=== PATIENT | female | born 1980 | race Caucasian/White ===

== ENCOUNTER → 2018-08-27 | Outpatient (REF) | payer OTHER ==
[2018-08-27 12:46] LABS: CHLAMYDIA DNA AMPLIFICATION NEGATIVE (NEGATIVE); GC DNA AMPLIFICATION NEGATIVE (NEGATIVE)
== END ==
LOC: M SFHCLERA 09:36
DX: R30.0 Dysuria (principal)

== ENCOUNTER → 2020-02-11 | Outpatient (REF) | payer OTHER | LOC: M LAB REF 12:04 | PROVIDERS: ATTEND Physician Assistant | DX: J02.9 Acute pharyngitis, unspecified (principal) ==

== ENCOUNTER 2020-02-15 14:22 | Emergency (ER) | payer OTHER ==
[~2020-02-15] VITALS: Ht 160 cm; Wt 79.6 kg
[2020-02-15] MEDS ORDERED: AMOX875T PO (14:31)
[2020-02-15] MEDS ORDERED: ZOFR4TAB16 PO (14:31)
[2020-02-15] MEDS ORDERED: PRED20TA PO (14:31)
[2020-02-15] MEDS ORDERED: PANTOPRAZOLE 40MG VIAL (C9113 PER 1) IV ONE (14:45)
[2020-02-15] MEDS ORDERED: GI COCKTAIL 50ML BTL(HYOSCYAMINE/MAALOX/LIDOCAINE VISCOUS)(1:3:1) PO ONE (14:45)
[2020-02-15 15:01] LABS: BASO % 0.2 % (0.0-1.0); EOS % 0.2 % (0.0-3.0); HEMATOCRIT 31.8 % (36.0-47.0); HEMOGLOBIN 9.4 g/dl (12.0-15.5); LYMPH # 1.8 10^3/uL (1.5-5.0); LYMPH % 22.5 % (24.0-44.0); MEAN CORPUSCULAR HEMOGLOBIN 21.6 pg (27.0-33.0); MEAN CORPUSCULAR HGB CONC 29.6 g/dl (32.0-36.5); MEAN CORPUSCULAR VOLUME 72.9 fl (80.0-96.0); MONO # 0.7 10^3/uL (0.0-0.8); MONO % 8.8 % (0.0-5.0); NEUTROPHILS # 5.5 10^3/uL (1.5-8.5); NEUTROPHILS % 67.8 % (36.0-66.0); PLATELET COUNT, AUTOMATED 255 10^3/uL (150-450); RED BLOOD COUNT 4.36 10^6/uL (4.00-5.40); WHITE BLOOD COUNT 8.1 10^3/uL (4.0-10.0)
[2020-02-15 15:13] LABS: INR 1.1; PROTHROMBIN TIME 13.9 SECONDS (11.8-14.0)
[2020-02-15 15:14] LABS: PARTIAL THROMBOPLASTIN TIME 30.1 SECONDS (25.0-38.4)
[2020-02-15 15:25] LABS: HCG, SERUM QUALITATIVE NEGATIVE (NEGATIVE)
[2020-02-15 15:33] LABS: ALBUMIN 3.9 GM/DL (3.2-5.2); ALT/SGPT 12 U/L (12-78); BILIRUBIN,DIRECT 0.1 MG/DL (0.0-0.2); BILIRUBIN,TOTAL 0.4 MG/DL (0.2-1.0); BLOOD UREA NITROGEN 13 MG/DL (7-18); CALCIUM LEVEL 8.4 MG/DL (8.5-10.1); CARBON DIOXIDE LEVEL 23 MEQ/L (21-32); CHLORIDE LEVEL 104 MEQ/L (98-107); CK-MB VALUE MASS < 1.0 NG/ML (<3.6); CPK CREATINE PHOSPHOKINASE 53 U/L (26-192); CREATININE FOR GFR 0.63 MG/DL (0.55-1.30); FREE T4 1.39 NG/DL (0.76-1.46); GLOMERULAR FILTRATION RATE > 60.0 (>60); GLUCOSE, FASTING 89 MG/DL (70-100); LIPASE 72 U/L (73-393); MB/CK RELATIVE INDEX 1.89 (< OR =4); POTASSIUM SERUM 3.4 MEQ/L (3.5-5.1); SODIUM LEVEL 137 MEQ/L (136-145); TOTAL PROTEIN 7.7 GM/DL (6.4-8.2); TROPONIN I < 0.02 NG/ML (< 0.10)
[2020-02-15] MEDS ORDERED: ISOVUE-370 76% 100ML VIAL (Q9967) As Ordered ONE (15:40)
[2020-02-15] MEDS ORDERED: POTASSIUM CHLORIDE 10 MEQ SR TABLET PO ONE (16:00)
[2020-02-15] MEDS ORDERED: PROT1TAB2 PO (16:42)
[2020-02-15 16:50] VITALS: BP 123/85
--- NOTE | 2020-02-15 16:51 | ECGEPIP ---
[facility] - ED Test Date: 2020-02-15 Pat Name: ANI HENLEY Department: Room: - Gender: Female Building Consultant: KATHE : 1980 Requested By: LES Johnson Order Number: [id number] Reading MD: Iva Torres Measurements Intervals [place] Rate: 94 P: 58 [place]: 150 QRS: 24 QRSD: 86 T: 22 QT: 372 QTc: 467 Interpretive Statements SINUS RHYTHM NONSPECIFIC ST T WAVE CHANGES PROLONGED QTC NO PRIOR ECG FOR COMPARISON Electronically Signed on 02-15-2020 16:51:00 EDT by Iva Torres
--- NOTE | 2020-02-16 07:35 | REP ---
CT pulmonary angiogram: With IV contrast. History: Pleuritic chest pain. Comparison studies: No comparison study. Contrast dose: 100 mL of Isovue [address] technique: Helical scanning is acquired and overlapping 1.5 mm and contiguous 3 mm axial images are reformatted. In addition, maximum intensity projection and multiplanar re-formation images are generated in sagittal and coronal imaging projections. CT pulmonary angiographic findings: There is good opacification of the pulmonary arterial tree. There is no filling defect or vessel cutoff. There is no CT evidence to suggest pulmonary embolism. Thoracic aorta is homogeneous in enhancement and normal in caliber. No evidence of dissection or aneurysm. The lung garcia are free of infiltrate. There is no evidence of atelectasis, pulmonary mass, or significant pulmonary nodule. No bony destructive lesion is seen. No pleural or pericardial effusion is seen. There is no evidence of hilar or mediastinal mass or adenopathy. Impression: Negative CT pulmonary angiogram. No CT evidence of pulmonary embolus. No acute intrathoracic abnormality. Electronically Signed by Kleber Morales MD 02/16/2020 07:41 A
--- NOTE | 2020-02-16 07:38 | REP ---
CT abdomen and pelvis with IV but without oral contrast: History: Epigastric and right lower quadrant pain. CT contrast dose: 100 mL of intravenous Isovue 370. CT findings: Preliminary digital merchandise planning manager radiograph shows a normal bowel gas pattern. The liver and the spleen are normal in size and homogeneous in texture. No adrenal lesion is seen. There is no abnormality in the gallbladder or pancreas. No retroperitoneal mass or adenopathy is seen. Kidneys enhance symmetrically are morphologically intact. There is no evidence of hydronephrosis or urinary tract calculus. A normal appendix is seen in the right lower quadrant. No inflammatory changes are noted. There is no evidence of free air or free fluid in the abdomen. No uterine or ovarian abnormality is seen. Bone window settings show no bony destructive lesion. Small and large bowel loops are unremarkable. No uterine or ovarian abnormalities. Impression: No acute abdominal or pelvic abnormality. Normal appendix is seen. Electronically Signed by Kleber Morales MD 02/16/2020 07:42 A
== END 2020-02-15 16:52 | disposition home or self-care (01) ==
LOC: M ED 14:22
DX: R07.9 Chest pain, unspecified (principal); R11.2 Nausea with vomiting, unspecified; R05 Cough; J02.0 Streptococcal pharyngitis; Z88.8 Allergy status to other drugs, medicaments and biological substances; Z79.899 Other long term (current) drug therapy; Z79.52 Long term (current) use of systemic steroids; Z79.2 Long term (current) use of antibiotics
CPT/HCPCS: 71275; 74177; 80048; 80076; 82550; 82553; 83690; 84439; 84443; 84484; 84703; 85025; 85610; 85730; 93005; 93041; 94760; 96374; 99285; C9113; Q9967

== ENCOUNTER → 2020-08-28 | Outpatient (REF) | payer OTHER ==
[~2020-08-28] MED LIST: AMOX875T PO; PRED20TA PO; PROT1TAB2 PO; ZOFR4TAB16 PO
[2020-08-28 17:30] LABS: APPEARANCE, URINE HAZY (CLEAR); BACTERIA, URINE AUTO 1+ (NEGATIVE); BILIRUBIN, URINE AUTO NEGATIVE (NEGATIVE); BLOOD, URINE BLOOD 2+ (NEGATIVE); COLOR, URINE YELLOW (YELLOW); GLUCOSE, URINE (UA) AUTO NEGATIVE (NEGATIVE); KETONE, URINE AUTO NEGATIVE (NEGATIVE); LEUKOCYTE ESTERASE, URINE AUTO NEGATIVE (NEGATIVE); MUCUS, URINE SMALL (NEGATIVE); NITRITE, URINE AUTO NEGATIVE (NEGATIVE); PROTEIN, URINE AUTO NEGATIVE (NEGATIVE); RBC, URINE AUTO 0 /HPF (0-3); SPECIFIC GRAVITY URINE AUTO 1.019 (1.002-1.035); SQUAMOUS EPITHELIAL CELL UR AU 7 /HPF (0-6); UROBILINOGEN, URINE AUTO 0.2 mg/dL (0.0-2.0); WBC, URINE AUTO 1 /HPF (0-3)
== END ==
LOC: M LAB REF 16:25
PROVIDERS: ATTEND Physician Assistant
DX: N39.0 Urinary tract infection, site not specified (principal); R30.0 Dysuria

== ENCOUNTER → 2020-11-20 | Outpatient (REF) | payer OTHER ==
[2020-11-20 12:57] LABS: HEMATOCRIT 32.7 % (36.0-47.0); HEMOGLOBIN 9.9 g/dl (12.0-15.5); MEAN CORPUSCULAR HEMOGLOBIN 23.2 pg (27.0-33.0); MEAN CORPUSCULAR HGB CONC 30.3 g/dl (32.0-36.5); MEAN CORPUSCULAR VOLUME 76.8 fl (80.0-96.0); PLATELET COUNT, AUTOMATED 256 10^3/uL (150-450); RED BLOOD COUNT 4.26 10^6/uL (4.00-5.40); WHITE BLOOD COUNT 6.2 10^3/uL (4.0-10.0)
[2020-11-20 14:11] LABS: HEPATITIS C VIRUS ABY INDEX < 0.0 INDEX (<0.8); HIV 1&2 SCREEN CENTAUR NEGATIVE (NEGATIVE)
[2020-11-20 14:45] LABS: CHLAMYDIA DNA AMPLIFICATION NEGATIVE (NEGATIVE); GC DNA AMPLIFICATION NEGATIVE (NEGATIVE)
== END ==
LOC: M PLALAB 10:22
PROVIDERS: ATTEND Specialist
DX: Z34.81 Encounter for supervision of other normal pregnancy, first trimester (principal)

== ENCOUNTER → 2020-12-18 | Outpatient (REF) | payer OTHER ==
[2020-12-18 14:36] LABS: PERCENT SATURATION 7.5 % (13.2-45.0)
== END ==
LOC: M PLALAB 11:37
PROVIDERS: ATTEND Advanced Practice Midwife
DX: O09.521 Supervision of elderly multigravida, first trimester (principal); O99.011 Anemia complicating pregnancy, first trimester

== ENCOUNTER 2020-12-24 08:12 | Outpatient (CLI) | payer OTHER ==
[~2020-12-24] VITALS: Ht 160 cm; Wt 83.4 kg
[2020-12-24] VITALS (7 sets, daily range): BP systolic 105–148; BP diastolic 56–82
[2020-12-24] MEDS ORDERED: IRON SUCROSE 500 MG in NS 250 ML OVER 4 HRS IV ONE (08:30)
[2020-12-24] MEDS ORDERED: CVS50CAP PO (09:01)
[2020-12-24] MEDS ORDERED: FIOR1CAP PO (09:01)
[2020-12-24] MEDS ORDERED: FERR32TA PO (09:01)
== END 2020-12-24 13:45 | disposition home or self-care (01) ==
LOC: M INFU 08:12
PROVIDERS: ATTEND Advanced Practice Midwife
DX: D64.9 Anemia, unspecified (principal); Z88.8 Allergy status to other drugs, medicaments and biological substances
CPT/HCPCS: 96365; 96366; J1756

== ENCOUNTER → 2021-01-29 | Outpatient (CLI) | payer OTHER ==
[~2021-01-29] MED LIST changes: +CVS50CAP PO; +FERR32TA PO; +FIOR1CAP PO
--- NOTE | 2021-01-29 14:28 | REP ---
INDICATION: ANATOMY. COMPARISON: None TECHNIQUE: Transabdominal scanning for 2nd trimester anatomy screen. FINDINGS: Scanning demonstrates a viable single intrauterine gestation in a variable lie. motion is observed and heart rate is recorded at 150 beats per minute. A posterior, grade I placenta is seen without evidence of previa. Umbilical cord with mid placental insertion. Amniotic fluid is subjectively normal. Closed cervical length is measured at 4.1 cm transabdominally. No extrauterine abnormality is observed. The cranium the appears to have a dolichocephalic shape. The right choroid plexus has 2 cystic areas visible, less than 5 mm each. The four-chamber heart view shows an echogenic focus in the left ventricle of the heart. The following anatomic structures are identified and felt to be sonographically unremarkable: Cavum, cerebellum and posterior fossa, cisterna magna, face and profile, nose and lips, nuchal fold, lungs, left and right ventricular outflow tract views, diaphragm, left-sided stomach, abdominal wall cord insertion, three-vessel umbilical cord, abdominal wall, kidneys and bladder, spine, and upper and lower extremities. Biometry chart: BPD 3.9 cm; 17 weeks 6 days Head circumference 16.0 cm; 18 weeks 6 days Abdominal circumference 13.2 cm; 18 weeks 5 days Femur length 3.1 cm; 19 weeks 5 days Humeral length 0.9 cm; 19 weeks 3 days HC/AC ratio normal 1.21 Cephalic index 0.65 (normal 0.7-0.86) Estimated weight 273 grams, 0 pounds 9 ounces, 68th percentile for 18 weeks 5 days. IMPRESSION: Single intrauterine gestation at 18 weeks 6 days by composite ultrasound criteria today. This gives EDC 06/26/2021 by today's study. By known EDC of 06/27/2021 she is 18 weeks 5 days Variable position, posterior grade 1 placenta without previa and mid cord insertion noted. Heart rate 150. Visually normal amniotic fluid volume. Closed 4.1 cm long cervix. Size and dates correspond well today with reported known CHRISTIE Anatomy screen shows a dolichocephalic skull, an intracardiac echogenic focus in the left ventricle and 2 less than 5 mm cysts in the right choroid plexus. These may be rechecked, all other anatomic features are seen and unremarkable. <Electronically signed by Jay Shah > 01/29/21 [id number]
== END ==
LOC: M WHC 10:55
PROVIDERS: ATTEND Obstetrics & Gynecology
DX: O34.211 Maternal care for low transverse scar from previous cesarean delivery (principal); O09.522 Supervision of elderly multigravida, second trimester; Z3A.18 18 weeks gestation of pregnancy

== ENCOUNTER → 2021-02-12 | Outpatient (REF) | payer OTHER ==
[2021-02-12 13:10] LABS: BASO % 0.4 % (0.0-1.0); EOS # 0.1 10^3/uL (0.0-0.5); EOS % 1.2 % (0.0-3.0); HEMATOCRIT 35.4 % (36.0-47.0); HEMOGLOBIN 11.3 g/dl (12.0-15.5); LYMPH # 1.2 10^3/uL (1.5-5.0); LYMPH % 17.2 % (24.0-44.0); MEAN CORPUSCULAR HEMOGLOBIN 27.7 pg (27.0-33.0); MEAN CORPUSCULAR HGB CONC 31.9 g/dl (32.0-36.5); MEAN CORPUSCULAR VOLUME 86.8 fl (80.0-96.0); MONO # 0.4 10^3/uL (0.0-0.8); MONO % 5.9 % (2.0-8.0); NEUTROPHILS # 5.2 10^3/uL (1.5-8.5); NEUTROPHILS % 74.9 % (36.0-66.0); PLATELET COUNT, AUTOMATED 232 10^3/uL (150-450); RED BLOOD COUNT 4.08 10^6/uL (4.00-5.40); WHITE BLOOD COUNT 6.9 10^3/uL (4.0-10.0)
== END ==
LOC: M PLALAB 11:48
PROVIDERS: ATTEND Advanced Practice Midwife
DX: O99.012 Anemia complicating pregnancy, second trimester (principal); Z3A.00 Weeks of gestation of pregnancy not specified

== ENCOUNTER → 2021-03-12 | Outpatient (REF) | payer OTHER | LOC: M PLALAB 12:39 | PROVIDERS: ATTEND Advanced Practice Midwife | DX: O99.019 Anemia complicating pregnancy, unspecified trimester (principal) ==

== ENCOUNTER → 2021-03-26 | Outpatient (REF) | payer OTHER ==
[2021-03-26 17:40] LABS: HEMATOCRIT 31.3 % (36.0-47.0); HEMOGLOBIN 10.2 g/dl (12.0-15.5); MEAN CORPUSCULAR HEMOGLOBIN 28.5 pg (27.0-33.0); MEAN CORPUSCULAR HGB CONC 32.6 g/dl (32.0-36.5); MEAN CORPUSCULAR VOLUME 87.4 fl (80.0-96.0); PLATELET COUNT, AUTOMATED 229 10^3/uL (150-450); RED BLOOD COUNT 3.58 10^6/uL (4.00-5.40); WHITE BLOOD COUNT 6.1 10^3/uL (4.0-10.0)
== END ==
LOC: M PLALAB 14:35
PROVIDERS: ATTEND Advanced Practice Midwife
DX: O09.529 Supervision of elderly multigravida, unspecified trimester (principal); O99.019 Anemia complicating pregnancy, unspecified trimester; Z3A.00 Weeks of gestation of pregnancy not specified

== ENCOUNTER → 2021-04-06 | Outpatient (CLI) | payer OTHER | LOC: M LAB 07:05 | PROVIDERS: ATTEND Advanced Practice Midwife | DX: O99.810 Abnormal glucose complicating pregnancy (principal) ==

== ENCOUNTER → 2021-05-17 | Outpatient (CLI) | payer OTHER | LOC: M WHC 13:38 | PROVIDERS: ATTEND Obstetrics & Gynecology | DX: O09.523 Supervision of elderly multigravida, third trimester (principal) ==

== ENCOUNTER → 2021-06-01 | Outpatient (REF) | payer OTHER, MEDICAID ==
[~2021-06-01] MED LIST changes: +COLA100C5 PO; +PERCOCET PO; +PRENTAB9 PO
== END ==
LOC: M SFHCWAGY 16:49
PROVIDERS: ATTEND Specialist
DX: Z34.83 Encounter for supervision of other normal pregnancy, third trimester (principal)

== ENCOUNTER → 2021-06-01 | Outpatient (CLI) | payer OTHER, MEDICAID | LOC: M WHC 11:58 | PROVIDERS: ATTEND Obstetrics & Gynecology | DX: Z36.4 Encounter for antenatal screening for fetal growth retardation (principal); O09.523 Supervision of elderly multigravida, third trimester; Z3A.36 36 weeks gestation of pregnancy ==

== ENCOUNTER → 2021-06-16 | Outpatient (CLI) | payer OTHER ==
[~2021-06-16] MED LIST changes: -COLA100C5 PO; -PERCOCET PO; -PRENTAB9 PO
== END ==
LOC: M LABSMTC 09:38
PROVIDERS: ATTEND Anesthesiology
DX: Z01.818 Encounter for other preprocedural examination (principal); Z11.52 Encounter for screening for COVID-19

== ENCOUNTER 2021-06-19 15:35 | Inpatient (IN) | payer OTHER, MEDICAID ==
[~2021-06-19] VITALS: Ht 157.5 cm; Wt 82.6 kg
[2021-06-19] MEDS ORDERED: COLA100C5 PO ×2 (15:57→20:29)
[2021-06-19] MEDS ORDERED: PRENTAB9 PO (15:57)
[2021-06-19] MEDS ORDERED: HOME MED LIST COMPLETE! XX SCH (16:00)
[2021-06-19 16:04] VITALS: BP 126/78
[2021-06-19 16:40] VITALS: BP 122/67
[2021-06-19] MEDS ORDERED: AZITHROMYCIN INJ 500 MG, VIAL MATE ADAPTER 1 EACH in NS 250 ML IV ONE (17:45)
[2021-06-19] MEDS ORDERED: TRANEXAMIC ACID INJection 1,000 MG in NS 100 ML IV PRN (17:45)
[2021-06-19] MEDS ORDERED: LACTATED RINGER'S 1000 ML IV STA (17:45)
[2021-06-19] MEDS ORDERED: BICITRA 30ML SOLN UDC PO ONE (17:45)
[2021-06-19] MEDS ORDERED: CARBOPROST TROMETHAMINE 250 MCG/ML AMP IM PRN (17:45)
[2021-06-19] MEDS ORDERED: METHYLERGONOVINE MALEATE 0.2 MG/ML VIAL (J2210) IM PRN (17:45)
[2021-06-19] MEDS ORDERED: LR 1,000 ML IV SCH ×3 (17:45→20:15)
[2021-06-19] MEDS ORDERED: ceFAZolin SOD 2 GM in IV 1 EA IV ONE (17:45)
[2021-06-19 17:57] LABS: HEMATOCRIT 33.5 % (36.0-47.0); HEMOGLOBIN 11.3 g/dl (12.0-15.5); MEAN CORPUSCULAR HEMOGLOBIN 29.5 pg (27.0-33.0); MEAN CORPUSCULAR HGB CONC 33.7 g/dl (32.0-36.5); MEAN CORPUSCULAR VOLUME 87.5 fl (80.0-96.0); PLATELET COUNT, AUTOMATED 195 10^3/uL (150-450); RED BLOOD COUNT 3.83 10^6/uL (4.00-5.40); WHITE BLOOD COUNT 9.9 10^3/uL (4.0-10.0)
[2021-06-19] MEDS ORDERED: MORPHINE PRES-FREE INJ 10 MG/10 ML VIAL (J2274) As Ordered ONE (17:59)
[2021-06-19] MEDS ORDERED: OXYTOCIN 30 UNITS IN 0.9% NaCl 500ML IV BAG (J2590) As Ordered ONE ×2 (17:59→20:52)
[2021-06-19] MEDS ORDERED: METOCLOPRAMIDE INJ 10MG/2ML VIAL (J2765 PER 1) IV PRN ×2 (18:21→20:15)
[2021-06-19] MEDS ORDERED: NALOXONE INJ 0.4MG/1ML VIAL (J2310 PER 1MG) IV PRN ×2 (18:21)
[2021-06-19] MEDS ORDERED: ONDANSETRON 4MG/2ML VIAL IV PRN ×2 (18:21→20:15)
[2021-06-19] MEDS ORDERED: diphenhydrAMINE 50MG/ML VIAL (J1200) IV PRN (18:21)
[2021-06-19] MEDS ORDERED: NALBUPHINE HCL 10 MG/ML AMP (J2300) IV PRN (18:21)
[2021-06-19] MEDS ORDERED: ONDANSETRON 4MG/2ML VIAL As Ordered ONE (18:29)
--- NOTE | 2021-06-19 18:30 | HPEPDOC ---
Obstetrical History & Physical General Date of Admission Jun 19, 2021 at 17:30 History of Present Illness 40-year-old at 38+6 weeks gestation. Presents with frequent, painful ut erine contractions over the past several hours. Also complains of decreased movement. Denies any loss of fluid or vaginal bleeding. ROS: no CUELLO, cp, sob, fever/chills/nausea/vomiting. course: History of LTCS x 3; satisfied parity. Plan is for RLTCS/BTL. PMH: Migraines SH: LTCS x 3 Meds: vitamin All: Ibuprofen, Ephedrine CONTRACTS ADVISOR: No STI or dysplasia OB: Term LTCS x 3 Sochx: No tobacco, alcohol or drug use FamHx: HTN, HLD labs: Blood type A+ , antibody screen negative, HepBsAg neg, HIV neg, rubella immune, Hep C antibody negative, RPR nonreactive, CT/GC neg, urine culture negative, 1 hour glucose challenge test, GBS negative imaging: no anomalies or placental abnormalities Past Medical History Allergies Coded Allergies: ephedrine (Verified Allergy, Unknown, 02/15/20) ibuprofen (Verified Allergy, Unknown, HIVES AND SWELLING, 06/19/21) Medications Scheduled Docusate Sodium (Colace) 100 Mg Capsule, 100 MG PO DAILY Ferrous Gluconate (Ferrous Gluconate) 324 Mg Tablet, 1 TAB PO TID No.137/Iron/Folic Acd ( Vitamin Tablet) 1 Each Tablet, 1 TAB PO DAILY Physical Examination Physical Examination GENERAL: Alert and oriented times three. ABDOMEN: Gravid and non-tender to touch. FETUS: Is vertex (VTX) by sterile vaginal examination (SVE), fetus is vertex (VTX) by Brandon. HEART RATE: Regular rate and rhythm. LUNGS: Clear to auscultation (CTA). EXTREMITIES: No edema. No clonus. SVE: 2/75/-3 with bloody show. EFM: Cat II ( tachycardia, intermittent late decelerations, moderate variability) [place]: ctxs every 5 min; patient breathing heavily through each contraction. Vital Signs/I&O Vital Signs Date Time Temp Pulse Resp B/P (MAP) Pulse Ox O2 Delivery O2 Flow Rate FiO2 06/19/21 16:40 86 18 122/67 (85) 06/19/21 16:04 98.0 Laboratory Data 24H LABS Laboratory Tests 2 06/19/21 17:33: Serology Scanned Report Hepatitis B Testing 06/19/21 17:43: CBC/BMP Assessment/Plan Assessment 40yo at 38+6 weeks in early active labor. Cat II FHR. H/o LTCS x 3; satisfied parity. Plan Admit and orient. Counseled and consented. Labs and intravenous (IV) per unit protocol. Preparations for the OR being made. CASSIA ANN DO Jun 19, 2021 18:30
[2021-06-19] MEDS ORDERED: ATROPINE SULF 0.4 MG/ML 1ML VIAL (J0461) As Ordered ONE (18:37)
[2021-06-19] MEDS ORDERED: dexameTHASONE 4 MG/ML 1ML VIAL (J1100 PER 1MG) As Ordered ONE (18:39)
[2021-06-19] MEDS ORDERED: OXYTOCIN INJ 10 UNITS/ML VIAL (J2590) As Ordered ONE (19:14)
[2021-06-19] MEDS ORDERED: ACETAMINOPHEN 1000MG 100ML IV BTL (OFIRMEV) (J0131 PER 10MG) As Ordered ONE (19:30)
[2021-06-19] MEDS ORDERED: PERCOCET 5MG/325MG TAB PO PRN ×2 (20:00→20:15)
[2021-06-19] MEDS ORDERED: MEASLES,MUMPS,RUBELLA VACCINE INJ (MMR-II) (90707) SC SCH (20:00)
[2021-06-19] MEDS ORDERED: OXYTOCIN DRIP 30 UNITS in IV 1 EA IV SCH (20:00)
[2021-06-19] MEDS ORDERED: ACETAMINOPHEN 500 MG TAB PO PRN (20:00)
[2021-06-19] MEDS ORDERED: RHOGAM 300 MCG (1500 IU) INJ (J2790) IM SCH (20:00)
[2021-06-19] MEDS ORDERED: fentaNYL 100 MCG/2 ML INJECTION (J3010) IV PRN (20:15)
--- NOTE | 2021-06-19 20:26 | ROOPDOC ---
[facility] Report Of Operation Report of Operation DATE OF PROCEDURE: 06/19/2021 PREPROCEDURE DIAGNOSES: 38+6 weeks gestation early active labor, category 2 heart rate tracing, history of low transverse section x3 and satisfied parity POSTPROCEDURE DIAGNOSES: Same; severe pelvic adhesions PROCEDURE: Repeat low transverse section with [place] bilateral tubal ligation. SURGEON: Abhishek Wiggins DO FACOG DIRECTOR OF GOVERNMENT SALES: Ignacio Simms DO FACOG (Essential role in retraction, extraction, and closure of all tissue layers) ANESTHESIA: Spinal with Duramorph ESTIMATED BLOOD LOSS: 700 mL. IV FLUIDS: 2100 mL LR URINE OUTPUT: 100 mL COMPLICATIONS: None. FINDINGS: Normal uterus and bilateral fallopian tubes/ovaries. PREOPERATIVE ANTIBIOTICS: Ancef 2g IV x 1, Azithromycin 500mg IV. DATA: Apgars 9 and 9. Birthweight 2730g, 6lbs. SPECIMENS: right and left fallopian tubal segments with fimbriated end. PRIMARY INDICATION FOR : Active labor, history of LTCSx3 DESCRIPTION OF PROCEDURE: The patient was counseled on the risks, benefits, indications and alternatives of the procedure. Informed consent was obtained. She was taken to the operating room with IV running and placed on the operating table in the dorsal supine position with a leftward tilt. Regional anesthesia was found to be adequate. Sequential compression devices were placed on the lower extremities. A Serra catheter was placed under sterile conditions. She was prepared and draped in normal sterile fashion. A time out was performed per protocol. Regional anesthesia was again found to be adequate. A Pfannenstiel skin incision was made with the 10 blade. The 10 blade was used to dissect down to the level of the rectus sheath fascia. The rectus sheath pressure was incised midline and this was extended bilaterally with Patel scissors , and manual stretch. The rectus muscle bellies were dissected off the rectus sheath fascia superiorly and inferiorly using both sharp and blunt dissection. The midline was identified. The peritoneum was identified and the cavity entered. The peritoneal opening was extended with manual stretch. Extensive adhesiolysis was performed along the lower uterine segment to the mid body of the uterus using Bovie cautery and Metzenbaum scissors. The entire anterior portion of the uterus was adherent to the anterior abdominal wall upon initial entry. These adhesions were all freed. The Mobius retractor was placed. The vesicouterine peritoneum was dissected with Metzenbaum scissors to create the bladder flap. The lower uterine segment was noted to be very thin but still intact. A low transverse uterine incision was made with the 10 blade. This was extended with manual stretch. The amniotic sac was punctured, and clear fluid was noted. The baby delivered through the hysterotomy without difficulty. The cord was doubly clamped and cut, and the baby was handed off to awaiting care. data shown above. The placenta was removed manually. The intrauterine cavity was cleared of all clot and debris. The hysterotomy was closed with 0 Vicryl in running locked fashion. This was reinforced with a second imbricating layer using 0 Vicryl in running fashion. Excellent hemostasis of the hysterotomy was noted. The right and left fallopian tubes were followed out to the fimbriated end. The underside/meso salpinx of each tube was clamped with Glendy, the distal portion involving the fimbriated end to the level of the cornu was amputated with the Bovie and the underside of the Glendy was suture-ligated with 0 Vicryl. Excellent hemostasis was noted on both sides. An additional 3-0 Vicryl suture was needed on the left side to ensure hemostasis of a small bleeding vessel. The proximal coagulated segment of each tube was noted to be hemostatic. Both tubes were sent to pathology. Excellent hemostasis was noted. The pelvis was irrigated and the fluid suctioned. The Mobius retractor was removed. The peritoneum was closed with 3-0 Vicryl running fashion. The rectus muscle bellies were reapproximated with interrupted stitches using 3-0 Vicryl. The rectus muscles bellies were hemostatic. The rectus sheath fascia was closed with 0 Vicryl running fashion. The subcutaneous layer was irrigated and the fluid suctioned. Small bleeding vessels were cauterized with Bovie. Excellent hemostasis was noted. The subcutaneous layer was reapproximated with 3-0 Vicryl running fashion. Skin was closed with 3-0 Monocryl in subcuticular fashion. An Optifoam bandage was placed over the closed incision. Sponge, needle and instrument counts were correct per protocol throughout the procedure. The patient tolerated the entire procedure very well. She was transferred to the PACU in stable condition. DO BEBE An JONATHAN R. DO Jun 19, 2021 20:26
[2021-06-19] MEDS ORDERED: PERCOCET PO (20:29)
[2021-06-19 21:30] VITALS: BP 100/56
[2021-06-19 22:00] VITALS: BP 112/58
[2021-06-19] MEDS: FERROUS GLUCONATE 324 MG TAB PO SCH (22:15)
[2021-06-19] MEDS: DOCUSATE SODIUM 100MG CAPSULE PO SCH (22:15)
[2021-06-19 22:30] VITALS: BP 110/58
[2021-06-19 23:30] VITALS: BP 106/59
[2021-06-20 00:30] VITALS: BP 99/56
[2021-06-20 02:00] VITALS: BP 95/50
[2021-06-20 05:48] VITALS: BP 97/55
[2021-06-20 07:59] LABS: HEMATOCRIT 27.4 % (36.0-47.0); MEAN CORPUSCULAR HEMOGLOBIN 29.5 pg (27.0-33.0); MEAN CORPUSCULAR HGB CONC 33.9 g/dl (32.0-36.5); PLATELET COUNT, AUTOMATED 174 10^3/uL (150-450); RED BLOOD COUNT 3.15 10^6/uL (4.00-5.40); WHITE BLOOD COUNT 11.7 10^3/uL (4.0-10.0)
[2021-06-20 08:00] LABS: HEMOGLOBIN 9.3 g/dl (12.0-15.5)
[2021-06-20] MEDS: PRENATAL VITAMINS CHEWABLE TABLET PO SCH (08:45)
[2021-06-20] MEDS: DOCUSATE SODIUM 100MG CAPSULE PO SCH ×2 (08:45→21:55)
[2021-06-20] MEDS: FERROUS GLUCONATE 324 MG TAB PO SCH ×3 (08:45→21:55)
[2021-06-20] MEDS ORDERED: PRENATAL VITAMINS CHEWABLE TABLET PO SCH (09:00)
[2021-06-20] MEDS ORDERED: DOCUSATE SODIUM 100MG CAPSULE PO SCH (09:00)
--- NOTE | 2021-06-20 10:34 | IPNPDOC ---
Progress Note Date of Service: Jun 20, 2021 Day#: 1 Progress Note SUBJECT: Status post RLTCS/BTL She has been ambulating, voiding spontaneously without issue and tolerating regular diet. Lochia decreasing/minimal. Pain is well-controlled. Incision bandage is clean/unsaturated. Denies headache, visual changes, right upper quadrant pain, shortness of breath or chest pain. OBJECTIVE: VITAL SIGNS: Within normal limits, afebrile. Alert and oriented times three. Abdomen: Fundus firm at U-2. Soft, NTTP. Incision bandage not soaked through ASSESSMENT: Status post uncomplicated RLTCS/BTL. Vitals within normal limits, afebrile, hemodynamically stable with no evidence of infection. PLAN: Discharge to home tomorrow Routine /postoperative advancement Postoperative instructions/precautions reviewed. Routine PP visit at 2 and 6 weeks in clinic. VS, I&O, 24H, Fishbone Vital Signs/I&O Vital Signs Date Time Temp Pulse Resp B/P (MAP) Pulse Ox O2 Delivery O2 Flow Rate FiO2 06/20/21 06:20 18 06/20/21 05:48 98.1 56 97/55 (69) 95 Room Air I&O- Last 24 Hours up to 6 AM 06/20/21 06:00 Intake Total 1800 ml Output Total 2035 ml Balance -235 ml Laboratory Data 24H LABS Laboratory Tests 2 06/19/21 17:33: Serology Scanned Report Hepatitis B Testing 06/19/21 17:43: Nucleated Red Blood Cells % (auto) 0.0 06/20/21 07:33: Nucleated Red Blood Cells % (auto) 0.0 CBC/BMP Laboratory Tests 06/19/21 17:43 06/20/21 07:33 CASSIA ANN DO Jun 20, 2021 10:34
[2021-06-20] MEDS: PERCOCET 5MG/325MG TAB PO PRN ×2 (12:10→18:29)
[2021-06-20] MEDS: SIMETHICONE 80MG CHEW TAB PO PRN ×2 (12:10→18:29)
[2021-06-20 14:00] VITALS: BP 95/50
[2021-06-20 17:51] VITALS: BP 131/65
[2021-06-20] MEDS ORDERED: MORPHINE 2 MG/ML 1ML VIAL (J2270) IV PRN (18:30)
[2021-06-20 22:00] VITALS: BP 104/57
[2021-06-21] MEDS: SIMETHICONE 80MG CHEW TAB PO PRN ×3 (00:56→13:46)
[2021-06-21] MEDS: PERCOCET 5MG/325MG TAB PO PRN ×3 (00:57→13:47)
[2021-06-21 02:00] VITALS: BP 101/57
[2021-06-21 06:08] VITALS: BP 112/65
[2021-06-21] MEDS: FERROUS GLUCONATE 324 MG TAB PO SCH (08:03)
[2021-06-21] MEDS: DOCUSATE SODIUM 100MG CAPSULE PO SCH (08:03)
[2021-06-21] MEDS: PRENATAL VITAMINS CHEWABLE TABLET PO SCH (08:04)
--- NOTE | 2021-06-21 08:59 | DS.PDOC ---
Discharge Summary General Date of Admission Jun 19, 2021 at 17:30 Date of Discharge June 21, 2021 Discharge Summary DATE OF ADMISSION: June 19, 2021 DATE OF DISCHARGE: June 21, 2021 ADMISSION DIAGNOSIS: Active labor at term history of prior low transverse section x3 satisfied parity DISCHARGE DIAGNOSIS: Same DISCHARGE SUMMARY: The patient was admitted at 38+6 weeks gestation with a diagnosis of active labor and ruptured membranes. The section delivery and tubal sterilization was uncomplicated. Her postoperative course was uncomplicated as well. On postoperative day #2, she was meeting all discharge criteria. PHYSICAL EXAMINATION ON DATE OF DISCHARGE: Normotensive. Normal heart rate. Afebrile. HEART: Regular rate and rhythm. No murmurs, gallops, or rubs. LUNGS: Clear to auscultation bilaterally. ABDOMEN: Soft, nontender, nondistended. Incision bandage clean and dry. EXTREMITIES: Nonedematous, nontender. She was meeting all discharge criteria on postoperative day #2. We reviewed routine fever, infectious, pain, and bleeding precautions. She is to followup in 2 weeks for incision check. Her postoperative medications are Percocet, Motrin, and Colace. Vital Signs/I&Os Vital Signs Date Time Temp Pulse Resp B/P (MAP) Pulse Ox O2 Delivery O2 Flow Rate FiO2 06/21/21 08:03 18 06/21/21 06:08 97.1 60 112/65 (81) 98 Room Air I&O- Last 24 Hours up to 6 AM 06/21/21 06:00 Intake Total 600 ml Output Total 600 ml Balance 0 ml Discharge Medications Scheduled Docusate Sodium (Colace) 100 Mg Capsule, 100 MG PO DAILY, (Reported) Docusate Sodium (Colace) 100 Mg Capsule, 100 MG PO BID Ferrous Gluconate (Ferrous Gluconate) 324 Mg Tablet, 1 TAB PO TID, (Reported) No.137/Iron/Folic Acd ( Vitamin Tablet) 1 Each Tablet, 1 TAB PO DAILY, (Reported) Scheduled PRN Oxycodone/Acetaminophen (Oxycodone-Acetaminophen 5-325) 1 Each Tablet, 1 TAB PO Q4H PRN for MODERATE PAIN (PS 5-7) Allergies Coded Allergies: ephedrine (Verified Allergy, Unknown, 02/15/20) ibuprofen (Verified Allergy, Unknown, HIVES AND SWELLING, 06/19/21) CASSIA ANN DO Jun 21, 2021 08:59
== END 2021-06-21 14:50 | disposition home or self-care (01) | DRG 785 ==
LOC: M LDO 15:35 → M LDI 17:30 → M OBS 21:25
PROVIDERS: ADMIT Obstetrics & Gynecology; ATTEND Obstetrics & Gynecology
PROC: 0UB70ZZ Excision of Bilateral Fallopian Tubes, Open Approach (ICD-10-PCS; 2021-06-19)
PROC: 10D00Z1 Extraction of Products of Conception, Low, Open Approach (ICD-10-PCS; principal; 2021-06-19 18:00)
DX: O34.211 Maternal care for low transverse scar from previous cesarean delivery (principal); O75.82 Onset (spontaneous) of labor after 37 completed weeks of gestation but before 39 completed weeks gestation, with delivery by (planned) cesarean section; Z3A.38 38 weeks gestation of pregnancy; Z37.0 Single live birth; Z30.2 Encounter for sterilization

== ENCOUNTER → 2021-08-24 | Outpatient (REF) | payer OTHER, MEDICAID ==
[~2021-08-24] MED LIST changes: +COLA100C5 PO; +PERCOCET PO; +PRENTAB9 PO
[2021-08-25 12:37] LABS: GC DNA AMPLIFICATION NEGATIVE (NEGATIVE)
== END ==
LOC: M SFHCWAGY 10:03
PROVIDERS: ATTEND Nurse Practitioner Women's Health
DX: Z11.3 Encounter for screening for infections with a predominantly sexual mode of transmission (principal); N90.89 Other specified noninflammatory disorders of vulva and perineum

== ENCOUNTER → 2022-01-24 | Outpatient (CLI) | payer OTHER, MEDICAID ==
[2022-01-24 13:42] LABS: HEMOGLOBIN 12.4 g/dl (12.0-15.5); MEAN CORPUSCULAR HEMOGLOBIN 27.9 pg (27.0-33.0); MEAN CORPUSCULAR HGB CONC 32.6 g/dl (32.0-36.5); MEAN CORPUSCULAR VOLUME 85.6 fl (80.0-96.0); PLATELET COUNT, AUTOMATED 236 10^3/uL (150-450); RED BLOOD COUNT 4.44 10^6/uL (4.00-5.40); WHITE BLOOD COUNT 5.2 10^3/uL (4.0-10.0)
== END ==
LOC: M PLALAB 11:45
PROVIDERS: ATTEND Obstetrics & Gynecology
DX: N93.9 Abnormal uterine and vaginal bleeding, unspecified (principal); Z12.4 Encounter for screening for malignant neoplasm of cervix; Z77.9 Other contact with and (suspected) exposures hazardous to health; Z01.419 Encounter for gynecological examination (general) (routine) without abnormal findings

== ENCOUNTER → 2022-03-10 | Outpatient (CLI) | payer OTHER, MEDICAID | LOC: M WHC 12:11 | PROVIDERS: ATTEND Obstetrics & Gynecology | DX: Z12.31 Encounter for screening mammogram for malignant neoplasm of breast (principal); Z80.3 Family history of malignant neoplasm of breast ==

== ENCOUNTER → 2022-11-02 | Outpatient (REF) | payer OTHER, MEDICAID ==
[2022-11-02 13:40] LABS: BASO % 0.4 % (0.0-1.0); EOS # 0.2 10^3/uL (0.0-0.5); EOS % 3.6 % (0.0-3.0); HEMATOCRIT 35.6 % (36.0-47.0); HEMOGLOBIN 10.5 g/dl (12.0-15.5); LYMPH # 1.7 10^3/uL (1.5-5.0); LYMPH % 33.9 % (24.0-44.0); MEAN CORPUSCULAR HEMOGLOBIN 23.8 pg (27.0-33.0); MEAN CORPUSCULAR HGB CONC 29.5 g/dl (32.0-36.5); MEAN CORPUSCULAR VOLUME 80.7 fl (80.0-96.0); MONO # 0.5 10^3/uL (0.0-0.8); MONO % 10.3 % (2.0-8.0); NEUTROPHILS # 2.6 10^3/uL (1.5-8.5); NEUTROPHILS % 51.4 % (36.0-66.0); PLATELET COUNT, AUTOMATED 296 10^3/uL (150-450); RED BLOOD COUNT 4.41 10^6/uL (4.00-5.40); WHITE BLOOD COUNT 5.1 10^3/uL (4.0-10.0)
[2022-11-02 14:07] LABS: THYROID STIMULATING HORMONE 3.674 uIU/ML (0.55-4.78)
[2022-11-02 14:10] LABS: FREE T4 1.08 NG/DL (0.89-1.76)
[2022-11-02 14:22] LABS: ALBUMIN 3.8 G/DL (3.2-5.2); ALKALINE PHOSPHATASE 55 U/L (46-116); ALT/SGPT < 9 U/L (7.0-40); AST/SGOT 19 U/L (<34); BILIRUBIN,TOTAL 0.9 MG/DL (0.3-1.2); BLOOD UREA NITROGEN 13 MG/DL (9-23); CALCIUM LEVEL 8.9 MG/DL (8.5-10.1); CARBON DIOXIDE LEVEL 23 MMOL/L (20-31); CHLORIDE LEVEL 103 MMOL/L (98-107); CHOLESTEROL LEVEL 308 MG/DL (<200); CHOLESTEROL RISK RATIO 4.26 (<5); CREATININE FOR GFR 0.64 MG/DL (0.55-1.30); GLOMERULAR FILTRATION RATE > 60.0 (>58); GLUCOSE, FASTING 80 MG/DL (60-100); HDL CHOLESTEROL 72.3 MG/DL (>40); LDL CHOLESTEROL 211.3 MG/DL (<100); NON-HDL-C 236 MG/DL; POTASSIUM SERUM 4.7 MMOL/L (3.5-5.1); SODIUM LEVEL 139 MMOL/L (136-145); TOTAL PROTEIN 7.4 G/DL (5.7-8.2); TRIGLYCERIDES LEVEL 122 MG/DL (<150)
[2022-11-02 14:41] LABS: HEMOGLOBIN A1c 5.2 % (4.0-6.0)
== END ==
LOC: M LAB REF 12:45
PROVIDERS: ATTEND Nurse Practitioner Family
DX: Z13.228 Encounter for screening for other metabolic disorders (principal)

== ENCOUNTER → 2023-03-06 | Outpatient (REF) | payer OTHER, MEDICAID ==
[2023-03-06 15:22] LABS: BASO % 0.4 % (0.0-1.0); EOS # 0.1 10^3/uL (0.0-0.5); EOS % 2.3 % (0.0-3.0); HEMATOCRIT 40.8 % (36.0-47.0); HEMOGLOBIN 13.3 g/dl (12.0-15.5); LYMPH # 1.7 10^3/uL (1.5-5.0); LYMPH % 34.7 % (24.0-44.0); MEAN CORPUSCULAR HEMOGLOBIN 29.4 pg (27.0-33.0); MEAN CORPUSCULAR HGB CONC 32.6 g/dl (32.0-36.5); MEAN CORPUSCULAR VOLUME 90.3 fl (80.0-96.0); MONO # 0.5 10^3/uL (0.0-0.8); MONO % 11.3 % (2.0-8.0); NEUTROPHILS # 2.4 10^3/uL (1.5-8.5); NEUTROPHILS % 51.1 % (36.0-66.0); PLATELET COUNT, AUTOMATED 223 10^3/uL (150-450); RED BLOOD COUNT 4.52 10^6/uL (4.00-5.40); WHITE BLOOD COUNT 4.8 10^3/uL (4.0-10.0)
[2023-03-06 15:51] LABS: CHOLESTEROL RISK RATIO 3.61 (<5); HDL CHOLESTEROL 66.7 MG/DL (>40); LDL CHOLESTEROL 157.9 MG/DL (<100); NON-HDL-C 174.3 MG/DL
== END ==
LOC: M LAB REF 12:40
PROVIDERS: ATTEND Nurse Practitioner Family
DX: R79.89 Other specified abnormal findings of blood chemistry (principal); D64.9 Anemia, unspecified

== ENCOUNTER → 2023-06-06 | Outpatient (REF) | payer OTHER, MEDICAID | LOC: M SFHCWAGY 13:16 | PROVIDERS: ATTEND Obstetrics & Gynecology | DX: Z12.4 Encounter for screening for malignant neoplasm of cervix (principal) ==

== ENCOUNTER → 2023-06-06 | Outpatient (CLI) | payer OTHER, MEDICAID | LOC: M WHC 09:20 | PROVIDERS: ATTEND Obstetrics & Gynecology | DX: Z12.31 Encounter for screening mammogram for malignant neoplasm of breast (principal) | CPT/HCPCS: 77063; 77067; G0463 ==

== ENCOUNTER → 2023-07-18 | Outpatient (REF) | payer OTHER, MEDICAID ==
[2023-07-18 19:18] LABS: BASO % 0.7 % (0.0-1.0); EOS # 0.1 10^3/uL (0.0-0.5); EOS % 2.7 % (0.0-3.0); HEMATOCRIT 42.2 % (36.0-47.0); LYMPH # 1.3 10^3/uL (1.5-5.0); LYMPH % 28.7 % (24.0-44.0); MEAN CORPUSCULAR HEMOGLOBIN 32.3 pg (27.0-33.0); MEAN CORPUSCULAR HGB CONC 33.2 g/dl (32.0-36.5); MEAN CORPUSCULAR VOLUME 97.2 fl (80.0-96.0); MONO # 0.5 10^3/uL (0.0-0.8); NEUTROPHILS # 2.5 10^3/uL (1.5-8.5); NEUTROPHILS % 55.5 % (36.0-66.0); PLATELET COUNT, AUTOMATED 219 10^3/uL (150-450); RED BLOOD COUNT 4.34 10^6/uL (4.00-5.40); WHITE BLOOD COUNT 4.5 10^3/uL (4.0-10.0)
[2023-07-18 19:30] LABS: CHOLESTEROL RISK RATIO 2.91 (<5); HDL CHOLESTEROL 76.4 MG/DL (>40); LDL CHOLESTEROL 132.8 MG/DL (<100); NON-HDL-C 146.6 MG/DL
== END ==
LOC: M LAB REF 16:35
PROVIDERS: ATTEND Nurse Practitioner Family
DX: D64.9 Anemia, unspecified (principal); R79.89 Other specified abnormal findings of blood chemistry

== ENCOUNTER → 2023-10-13 | Outpatient (REF) | payer OTHER, MEDICAID ==
[2023-10-13 14:23] LABS: FREE T4 0.98 NG/DL (0.89-1.76); THYROID STIMULATING HORMONE 6.64 uIU/ML (0.55-4.78)
== END ==
LOC: M LAB REF 12:12
PROVIDERS: ATTEND Nurse Practitioner Family
DX: R94.6 Abnormal results of thyroid function studies (principal)

== ENCOUNTER → 2023-11-10 | Outpatient (CLI) | payer OTHER, MEDICAID | LOC: M RAD 13:21 | PROVIDERS: ATTEND Nurse Practitioner Family | DX: R94.6 Abnormal results of thyroid function studies (principal) ==

== ENCOUNTER → 2023-11-13 | Outpatient (REF) | payer OTHER, MEDICAID ==
[2023-11-13 17:17] LABS: THYROID STIMULATING HORMONE 3.037 uIU/ML (0.55-4.78)
[2023-11-13 17:20] LABS: THYROID PEROXIDASE ANTIBODY < 28.0 U/ML (<60.0)
== END ==
LOC: M LAB REF 16:14
PROVIDERS: ATTEND Nurse Practitioner Family
DX: R94.6 Abnormal results of thyroid function studies (principal)

== ENCOUNTER → 2024-02-08 | Outpatient (REF) | payer OTHER, MEDICAID ==
[2024-02-08 13:16] LABS: BASO % 0.6 % (0.0-1.0); EOS # 0.1 10^3/uL (0.0-0.5); EOS % 1.8 % (0.0-3.0); HEMATOCRIT 43.4 % (36.0-47.0); HEMOGLOBIN 14.9 g/dl (12.0-15.5); LYMPH % 39.6 % (24.0-44.0); MEAN CORPUSCULAR HGB CONC 34.3 g/dl (32.0-36.5); MONO # 0.5 10^3/uL (0.0-0.8); MONO % 9.7 % (2.0-8.0); NEUTROPHILS # 2.4 10^3/uL (1.5-8.5); NEUTROPHILS % 48.1 % (36.0-66.0); PLATELET COUNT, AUTOMATED 227 10^3/uL (150-450); RED BLOOD COUNT 4.52 10^6/uL (4.00-5.40); WHITE BLOOD COUNT 4.9 10^3/uL (4.0-10.0)
[2024-02-08 13:42] LABS: THYROID STIMULATING HORMONE 4.998 uIU/ML (0.55-4.78)
[2024-02-08 13:43] LABS: CHOLESTEROL RISK RATIO 4.82 (<5); HDL CHOLESTEROL 53.1 MG/DL (>40); LDL CHOLESTEROL 177.7 MG/DL (<100); NON-HDL-C 202.9 MG/DL
[2024-02-08 13:44] LABS: FREE T4 1.1 NG/DL (0.89-1.76)
== END ==
LOC: M LAB REF 12:04
PROVIDERS: ATTEND Nurse Practitioner Family
DX: E03.9 Hypothyroidism, unspecified (principal); D64.9 Anemia, unspecified; R79.89 Other specified abnormal findings of blood chemistry

== ENCOUNTER → 2024-08-28 | Outpatient (REF) | payer OTHER, MEDICAID ==
[2024-08-29 12:53] LABS: CHOLESTEROL LEVEL 278 MG/DL (<200); CHOLESTEROL RISK RATIO 5.35 (<5); HDL CHOLESTEROL 51.9 MG/DL (>40); NON-HDL-C 226.1 MG/DL; TRIGLYCERIDES LEVEL 559 MG/DL (<150)
[2024-08-29 12:54] LABS: THYROID STIMULATING HORMONE 4.844 uIU/ML (0.55-4.78)
== END ==
LOC: M LAB REF 12:07
PROVIDERS: ATTEND Nurse Practitioner Family
DX: E03.9 Hypothyroidism, unspecified (principal); R79.89 Other specified abnormal findings of blood chemistry

== ENCOUNTER → 2024-11-07 | Outpatient (REF) | payer OTHER, MEDICAID ==
[2024-11-07 14:57] LABS: ALBUMIN 4.2 G/DL (3.2-5.2); ALKALINE PHOSPHATASE 66 U/L (35-104); ALT/SGPT 25 U/L (7.0-40); AST/SGOT 29 U/L (<34); BILIRUBIN,TOTAL 0.7 MG/DL (0.3-1.2); BLOOD UREA NITROGEN 13 MG/DL (9-23); CALCIUM LEVEL 9.5 MG/DL (8.5-10.1); CARBON DIOXIDE LEVEL 27 MMOL/L (20-31); CHLORIDE LEVEL 108 MMOL/L (98-107); CHOLESTEROL LEVEL 211 MG/DL (<200); CHOLESTEROL RISK RATIO 4.24 (<5); CREATININE FOR GFR 0.71 MG/DL (0.55-1.30); GLOMERULAR FILTRATION RATE > 60.0 (>58); GLUCOSE, FASTING 81 MG/DL (60-100); HDL CHOLESTEROL 49.7 MG/DL (>40); LDL CHOLESTEROL 127.1 MG/DL (<100); NON-HDL-C 161.3 MG/DL; POTASSIUM SERUM 4.4 MMOL/L (3.5-5.1); SODIUM LEVEL 139 MMOL/L (136-145); TOTAL PROTEIN 7.2 G/DL (5.7-8.2); TRIGLYCERIDES LEVEL 171 MG/DL (<150)
[2024-11-07 14:58] LABS: FREE T4 1.28 NG/DL (0.89-1.76)
[2024-11-07 14:59] LABS: THYROID STIMULATING HORMONE 2.262 uIU/ML (0.55-4.78)
== END ==
LOC: M LAB REF 13:57
PROVIDERS: ATTEND Nurse Practitioner Family
DX: E03.9 Hypothyroidism, unspecified (principal); R79.89 Other specified abnormal findings of blood chemistry

== ENCOUNTER → 2024-11-18 | Outpatient (REF) | payer OTHER, MEDICAID ==
[2024-11-20 15:11] LABS: HPV APTIMA Not Detected (Not Detected)
== END ==
LOC: M SFHCWAGY 15:17
PROVIDERS: ATTEND Obstetrics & Gynecology
DX: Z12.4 Encounter for screening for malignant neoplasm of cervix (principal)

== ENCOUNTER → 2024-11-18 | Outpatient (CLI) | payer OTHER, MEDICAID | LOC: M WHC 10:09 | PROVIDERS: ATTEND Obstetrics & Gynecology | DX: Z12.31 Encounter for screening mammogram for malignant neoplasm of breast (principal); Z01.419 Encounter for gynecological examination (general) (routine) without abnormal findings; R92.313 Mammographic fatty tissue density, bilateral breasts; Z11.51 Encounter for screening for human papillomavirus (HPV); Z79.3 Long term (current) use of hormonal contraceptives; Z79.890 Hormone replacement therapy; Z79.899 Other long term (current) drug therapy; Z88.6 Allergy status to analgesic agent; Z98.51 Tubal ligation status | CPT/HCPCS: 77063; 77067; G0463 ==

== ENCOUNTER → 2025-02-03 | Outpatient (REF) | payer OTHER, MEDICAID ==
[2025-02-03 12:47] LABS: BASO % 0.6 % (0.0-1.0); EOS # 0.1 10^3/uL (0.0-0.5); EOS % 2.5 % (0.0-3.0); HEMATOCRIT 41.3 % (36.0-47.0); HEMOGLOBIN 13.7 g/dl (12.0-15.5); LYMPH # 1.5 10^3/uL (1.5-5.0); LYMPH % 28.5 % (24.0-44.0); MEAN CORPUSCULAR HEMOGLOBIN 30.5 pg (27.0-33.0); MEAN CORPUSCULAR HGB CONC 33.2 g/dl (32.0-36.5); MONO # 0.7 10^3/uL (0.0-0.8); MONO % 12.9 % (2.0-8.0); NEUTROPHILS # 2.8 10^3/uL (1.5-8.5); NEUTROPHILS % 54.2 % (36.0-66.0); PLATELET COUNT, AUTOMATED 215 10^3/uL (150-450); RED BLOOD COUNT 4.49 10^6/uL (4.00-5.40); WHITE BLOOD COUNT 5.2 10^3/uL (4.0-10.0)
[2025-02-03 12:53] LABS: MAGNESIUM LEVEL 1.7 MG/DL (1.8-2.4)
[2025-02-03 12:57] LABS: TOTAL 25(OH) VITAMIN D 28.4 NG/ML (20.0-100.0)
[2025-02-03 12:58] LABS: THYROID STIMULATING HORMONE 3.014 uIU/ML (0.55-4.78)
[2025-02-03 13:08] LABS: HEMOGLOBIN A1c 5.2 % (4.0-6.0)
== END ==
LOC: M LAB REF 12:15
PROVIDERS: ATTEND Nurse Practitioner Family
DX: E55.9 Vitamin D deficiency, unspecified (principal); E66.9 Obesity, unspecified

== ENCOUNTER → 2025-10-06 | Outpatient (REF) | payer OTHER, MEDICAID ==
[2025-10-06 12:47] LABS: ALT/SGPT 11 U/L (7.0-40); AST/SGOT 20 U/L (<34); CALCIUM LEVEL 8.5 MG/DL (8.5-10.1); CARBON DIOXIDE LEVEL 28 MMOL/L (20-31); CHLORIDE LEVEL 104 MMOL/L (98-107); CHOLESTEROL LEVEL 159 MG/DL (<200); CHOLESTEROL RISK RATIO 2.64 (<5); CREATININE FOR GFR 0.68 MG/DL (0.55-1.30); GLOMERULAR FILTRATION RATE > 90.0 (>58); LDL CHOLESTEROL 85.3 MG/DL (<100); NON-HDL-C 98.9 MG/DL; POTASSIUM SERUM 3.8 MMOL/L (3.5-5.1); SODIUM LEVEL 139 MMOL/L (136-145); TRIGLYCERIDES LEVEL 68 MG/DL (<150)
== END ==
LOC: M LAB REF 12:01
PROVIDERS: ATTEND Family Medicine Addiction Medicine
DX: E03.9 Hypothyroidism, unspecified (principal)